=== PATIENT | female | born 1995 | race Caucasian/White ===

== ENCOUNTER 2020-05-07 10:33 | Emergency (ER) | payer OTHER, SELFPAY ==
[2020-05-07 11:05] VITALS: BP 106/71; PULSE 100; RESP 18; TEMP 37.3; O2SAT 100; BMI 22.3
[2020-05-07] MEDS: Acetaminophen 325 MG TABLET 650 MG PO (11:37)
--- NOTE | 2020-05-07 11:45 | PC.NURSE ---
pt medicated per emar, tolerating po att. given pitcher of ice water. swabs obtained and sent. [facility].
--- NOTE | 2020-05-07 12:02 | ED_ITS ---
HPI - General Adult General Chief complaint: General Medical Stated complaint: WEAKNESS VOMITING FEVER Time Seen by Provider: 05/07/20 10:55 Source: patient Mode of arrival: ambulatory Limitations: no limitations History of Present Illness HPI narrative: Patient presents to the ED for fever of 101 that occur last night, night sweats, chills, body aches, vomiting, sore throat and 2 episodes of diarrhea. Patient states no abdominal pain, chest pain, shortness of breath, or coughing. Patient states also throat pain. Patient denies any dysuria, hematuria, flank pain, headache, flank pain, or neck stiffness. Related Data Allergies Allergy/AdvReac Type Severity Reaction Status Date / Time Sulfa (Sulfonamide Allergy Mild HIVES Unverified 03/25/20 16:38 Antibiotics) [SULFA (SULFONAMIDE ANTIBIOTICS)] Review of Systems Review of Systems: Yes all other systems are reviewed and are negative Constitutional: Constitutional: Reports as per HPI, Reports no additional constitutional complaints, Reports body ache(s), Reports chills, Reports fever(s), Reports night sweats and Reports weakness Eyes: Eyes: Reports as per HPI and Reports no additional eye complaints ENT: Reports system reviewed and no additional complaints, except as documented and Reports as per HPI Cardiovascular: Cardiovascular: Reports as per HPI, Reports no additional cardiovascular complaints, Denies chest pain, Denies chest pain at rest, Denies chest pain with activity, Denies Epigastric Pain, Denies leg edema, Denies lightheadedness, Denies Loss of Consciousness, Denies radiating jaw, neck or arm pain, Denies dyspnea, Denies dyspnea on exertion, Denies orthopnea and Denies paroxysmal nocturnal dyspnea Respiratory: Respiratory: Reports as per HPI, Reports no additional respiratory complaints, Denies chest congestion, Denies cough, Denies hemoptysis, Denies excessive phlegm production, Denies pain on inspiration, Denies pain with cough, Denies dyspnea and Denies dyspnea on exertion Gastrointestinal: Gastrointestinal: Reports as per HPI, Reports no additional gastrointestinal complaints, Denies abdominal pain, Denies belching, Denies melena, Denies bloating, Denies hematochezia, Denies change in bowel habits, Denies tenesmus, Denies change in stool character, Denies coffee ground emesis, Denies constipation, Denies GI cramping, Denies excessive flatus, Denies early satiety, Reports diarrhea, Reports nausea and Reports vomiting Genitourinary: Genitourinary: Denies abnormal vaginal bleeding, Denies urinary frequency, Denies difficulty voiding, Denies dysmenorrhea, Denies dysuria, Denies pelvic pain, Denies urinary incontinence, Denies urinary hesitancy, Denies vaginal discharge and Denies vaginal dryness Musculoskeletal: Musculoskeletal: Reports as per HPI Neurologic: Reports system reviewed and no additional complaints, except as documented, Reports as per HPI and Reports weakness Psychiatric: Psychiatric: Reports no additional psychiatric complaints and Reports as per HPI [facility] Past Medical History Medical History Asthma Social History Social History Alcohol intake: never Smoking Status: Light tobacco smoker Use of substances other than those prescribed or required for medical reasons: No Advance Directives: No Advance Directives Information Provided: No Physical Exam Vital Signs: Vital Signs: Vital Signs Temp Pulse Resp BP Pulse Ox 05/07/20 13:27 104 H 116/76 05/07/20 11:05 99.1 F 100 18 106/71 100 Body Mass Index 22.3 Const: General: cooperative, healthy appearing, comfortable, no acute distre ss, well developed, alert, awake and Physically active Orientation/consciousness: patient oriented x3 HENMT: Head: Yes normal to inspection Ears: hearing grossly normal bilaterally, external ears normal and TM's normal bilaterally General nose exam: Normal external nose present Face and sinus: Yes normal facial exam Mouth: Normal oral and palatal mucosa present Throat: Yes posterior oropharynx normal and Yes tonsils normal Eyes: General: appearance normal, both eyes and all related structures Neck: Neck: Yes normal visual inspection, Yes full ROM, Yes no lymphadenopathy and Yes no meningeal signs Chest: Chest palpation & inspection: normal inspection of the chest, normal palpation of entire chest wall and no localized rib tenderness Resp: Effort & Inspection: normal respiratory effort, able to speak in complete sentences, normal respiratory pattern, no audible wheezes, no cough, no grunting, not labored, no nasal flaring, no paradoxical thoraco-abdom movements, no pursed lip breathing, no retractions, no segmental paradox chest wall movement, no stridor, not tachypneic and no tracheal deviation Auscultation: clear to auscultation bilaterally, no crackles, no rales, no rhonchi and no wheezes Cardio: Jugular venous distension: no JVD Heart sounds: S1 normal heart sound present and S2 normal heart sound present GI: Inspection: Yes normal to inspection and No abdominal wall ecchymosis Palpation (GI): Soft to palpation, not firm, nontender, no guarding and not rigid Percussion: Yes normal to percussion Auscultation: normal bowel sounds : General: No CVA tenderness and Yes no CVA tenderness Back/Spine/Pelvis: Back: no CVA tenderness, No CVA tenderness and No back tenderness Skin: General skin exam: no rashes or lesions noted Neuro: General: patient oriented x3, gait normal, no meningeal signs and CN's II-XI intact bilaterally Cranial nerves: Yes CN's II-XII intact bilaterally Extrem: General: Yes normal to inspection and Yes full ROM Psych: Appearance: grossly normal, well kempt and not disheveled Course Course Course Narrative: History physical exam indicate viral syndrome. Patient will have COVID swab, influenza swab, rapid strep sent. Patient vital signs are stable. Patient will be given Tylenol p.o. Zofran. Patient does not have any abdominal tenderness and not presently having and diarrhea or vomiting. Labs are not indicated. Not suspecting any emergent medical or surgical etiology. Reevaluation(s) Reevaluation #1: Patient passed p.o. challenge. Patient given oral fluids. Patient rapid strep is negative. Patient influenza swabs negative. COVID swabs result pending. Patient educated on self-isolation. Patient educated on oral hydration. Presently no further labs or imaging indicated patient. patient did not have any abdominal pain, nausea, vomiting or diarrhea during ED visit. Diagnosis viral syndrome Time: 12:43 Medical Decision Making [facility] Narrative Medical decision making narrative: Viral syndrome Lab Data Labs: Lab Results 05/07/20 Range/Units 11:40 Influenza Type A (PCR) NEGATIVE (Negative) Influenza Type B (PCR) NEGATIVE (Negative) Influenza A & B Note See Note RSV RNA Qual (PCR) NEGATIVE (Negative) Discharge Plan Discharge Clinical Impression: Acute viral syndrome Patient Disposition: Home, Self-Care Instructions: Viral Syndrome (ED) Additional Instructions: return to ED for any abdominal pain, inability to tolerate solid food/liquid, blood in stool, flank pain, dysuria, hematuria, fever, chills, chest pain, shortness of breath, coughing up blood, or any other concerning symptoms. Recommend 14 days self-isolation if COVID swab come back positive. Referrals: Masoud Oshea MD [Primary Care Provider] - 2 days ( Viral syndrome) Stand Alone Forms: Work/School Release Interventions: ED Discharge Assessment Last Done: 05/07/20 13:27 Discharge Date/Time: 05/07/20 13:30 Print Language: Lithuanian
[2020-05-07 12:24] LABS: Influenza A PCR NEGATIVE (Negative); Influenza B PCR NEGATIVE (Negative)
[2020-05-07 12:27] LABS: Resp Syncy Virus RNA Qual PCR NEGATIVE (Negative)
[2020-05-07 13:27] VITALS: BP 116/76; PULSE 104
== END 2020-05-07 13:30 | disposition home or self-care (01) ==
PROVIDERS: Physician Assistant; Emergency Provider Emergency Medicine; PCP Internal Medicine
DX: B34.9 Viral infection, unspecified (principal); R50.9 Fever, unspecified; F17.200 Nicotine dependence, unspecified, uncomplicated; Z71.6 Tobacco abuse counseling; Z20.828 Contact with and (suspected) exposure to other viral communicable diseases
CPT/HCPCS: 87071; 87147; 87631; 87880; 99283; 99284; U0003